=== PATIENT | male | born 1995 | race Caucasian/White ===

== ENCOUNTER 2017-11-14 19:36 | Inpatient (IN) | payer BC ==
[~2017-11-14] VITALS: Ht 182.9 cm; Wt 77.8 kg
[2017-11-14] MEDS ORDERED: SODIUM CHLORIDE 0.9% 500ML 500 ML IV STA (20:14)
[2017-11-14] MEDS ORDERED: PANTOprazole INJ 80 MG in DEXTROSE 5% 100ML 100 ML IV SCH (20:30)
[2017-11-14 20:52] LABS: HEMOGLOBIN 4.8 g/dL (14.0-18.0); MEAN CELL VOLUME 91.5 fL (80-100); MEAN CORPUSCULAR HEMOGLOBIN 31.4 pg (25-34); MEAN CORPUSCULAR HGB CONC 34.3 g/dl (32-36); MEAN PLATELET VOLUME 9.2 fL (7.4-10.4); PLATELET COUNT 178 K/uL (130-400); RED CELL DISTRIBUTION WIDTH CV 15.7 % (11.5-14.5); RED CELL DISTRIBUTION WIDTH SD 47.9 fL (36.4-46.3); WHITE BLOOD COUNT 8.02 K/uL (4.8-10.8)
[2017-11-14 20:53] LABS: INR 1.1 (0.9-1.1); PTT PATIENT 21.5 SECONDS (21.0-31.0)
[2017-11-14 20:54] LABS: ALBUMIN 2.8 gm/dl (3.4-5.0); ALT/SGPT 18 U/L (12-78); AST/SGOT 11 U/L (15-37); BLOOD UREA NITROGEN 22 mg/dl (7-18); CALCIUM 7.7 mg/dl (8.5-10.1); CARBON DIOXIDE 31 mmol/L (21-32); CREATININE 0.71 mg/dl (0.60-1.40); GLUCOSE 94 mg/dl (70-99); LIPASE 202 U/L (73-393); POTASSIUM 3.5 mmol/L (3.5-5.1); SODIUM 134 mmol/L (136-145)
--- NOTE | 2017-11-14 20:55 | EMERGENCY ROOM VISIT NOTE ---
History First contact with patient: 20:03 Chief Complaint: ABNORMAL LABS Stated Complaint: LOW HEMOGLOBIN History of Present Illness The patient is a 22 year old male who presents to the Emergency Room with complaints of syncope. He states he lost consciousness in his shower earlier this morning, but did not hit his head. He went to the urgent care center following this and was told to come to the ED due to a low hemoglobin level. He also reports he has been fatigued, dizzy and short of breath for the past 3 days. He also reports rhinorrhea, feeling congested and feeling his heartbeat in his ears. He states he has noticed dark stools for the past few days, and had not had this in the past. He denies passing bright red blood, denies the use of blood thinners, NSAIDs, or aspirin. He reports he does not have a history of ulcers, but does drink at least 2 cups of coffee each day. He states he has had stomach problems for the past 3 years, and has had a bowel movement approximately once a week. He also reports a 2 week history of burning epigastric pain, that comes and goes, and is unrelated to eating. He states the pain has been so bad at times he has doubled over. He denies mucosal bleeding, hematemesis, hematuria and hemoptysis. He denies alcohol use and recreational drug use. Review of Systems See HPI for pertinent positives & negatives. A total of 10 systems reviewed and were otherwise negative. Past Medical/Surgical History Medical Problems: (1) Hemorrhoid Social History Smoking Status: Current Every Day Smoker Alcohol Use: none Drug Use: none Marital Status: Occupation Status: employed No alcohol consumption, no recreational drug use. Current/Historical Medications No Active Prescriptions or Reported Meds Physical Exam Vital Signs Date Time Temp Pulse Resp B/P (MAP) Pulse Ox O2 Delivery O2 Flow Rate FiO2 11/14/17 21:08 105 11/14/17 20:44 110 16 113/57 97 Room Air 11/14/17 19:42 37.2 113 20 101/59 98 Room Air Physical Exam General: Patient is very pale and ill appearing. HEENT: Head - normocephalic and atraumatic. Mouth - moist buccal mucosa. Oropharynx is nonerythematous and there is no tonsillar exudate or edema noted. Heart: Tachycardic. Regular rate and rhythm. There is a normal S1 and S2 with no murmurs, clicks, or gallops appreciated. Lungs: Clear to auscultation bilaterally with no wheezes, rales, or rhonchi. Abdomen: Soft, nontender, nondistended, with good bowel sounds. There are no palpable pulsatile masses or hepatosplenomegaly. There is no guarding, rigidity , or rebound noted. Extremities: No evidence of cyanosis, clubbing, or edema. There are easily palpable peripheral pulses. Neuro:The patient is awake and alert, oriented to day, time, and place. Medical Decision & Procedures ER Provider Diagnostic Interpretation: CT SCAN OF THE ABDOMEN AND PELVIS WITHOUT IV CONTRAST CLINICAL HISTORY: Anemia. COMPARISON STUDY: Abdominal CT dated 09/08/2010. TECHNIQUE: CT scan of the abdomen and pelvis is performed from the lung bases to the proximal femora. Images are reviewed in the axial, sagittal, and coronal planes. IV contrast was not administered for this examination as per the front clinician. Note that the examination was performed in suboptimal fashion without oral and IV contrast. A dose lowering technique was utilized adhering to the principles of ALARA. The examination is modestly degraded by motion artifact. CT DOSE: 1102.79 mGy.cm FINDINGS: Lung bases: The heart is normal in size and without pericardial effusion. There is diminished attenuation of the cardiac blood pool as compared to the myocardium suggesting anemia. The lung bases are clear. Liver: The unenhanced liver is normal in size, contour, and attenuation. There is no intrahepatic biliary ductal dilatation. Gallbladder: Unremarkable. Spleen: Normal in size and attenuation. Pancreas: The unenhanced pancreas is grossly unremarkable. Adrenal glands: Unremarkable. Kidneys: The unenhanced kidneys are normal in size and without hydronephrosis. There are no renal calculi identified. There is no evidence of contour deforming renal mass lesion. Abdominal vasculature: The abdominal aorta is normal in course and caliber. Bowel: There is moderate colonic fecal retention. No bowel obstruction is seen. The appendix is not identified and reported surgically absent. Peritoneum: There is no intraperitoneal free air or abdominal ascites. No retroperitoneal hemorrhage is identified. Lymphadenopathy: None. Pelvic viscera: The bladder, prostate, and seminal vesicles are normal as visualized. Skeletal structures: No lytic or blastic lesions are seen. IMPRESSION: 1. Suboptimal examination without oral and IV contrast. 2. There are no acute infectious or inflammatory findings in the abdomen or pelvis. CT SCAN OF THE BRAIN WITHOUT IV CONTRAST CLINICAL HISTORY: Anemia. COMPARISON STUDY: CT of the brain dated 02/20/2011. TECHNIQUE: Unenhanced axial CT scan of the brain is performed from the vertex to the skull base. A dose lowering technique was utilized adhering to the principles of ALARA. FINDINGS: Brain parenchyma: The brain parenchyma is normal in appearance. There is no hemorrhage, mass effect, or evidence of acute territorial ischemia by CT criteria. Harris-white matter is preserved. No extra-axial fluid collection is seen. Ventricles, sulci, cisterns: Normal in configuration. Intracranial vasculature: The visualized intracranial vasculature at the skull base is normal in appearance. Calvarium: Unremarkable. Sinuses and mastoids: The visualized paranasal sinuses are clear. The mastoid air cells are well pneumatized. Orbits: The bony orbits are grossly intact. IMPRESSION: No acute intracranial abnormality. Laboratory Results 11/14/17 20:26 Red Blood Count 1.53, Mean Corpuscular Volume 91.5, Mean Corpuscular Hemoglobin 31.4, Mean Corpuscular Hemoglobin Concent 34.3, Mean Platelet Volume 9.2, Neutrophils (%) (Auto) 63.9, Lymphocytes (%) (Auto) 27.3, Monocytes (%) (Auto) 7.7, Eosinophils (%) (Auto) 0.5, Basophils (%) (Auto) 0.4, Neutrophils # (Auto) 5.12, Lymphocytes # (Auto) 2.19, Monocytes # (Auto) 0.62, Eosinophils # (Auto) 0.04, Basophils # (Auto) 0.03 11/14/17 20:26 Test 11/14/17 20:20 11/14/17 20:26 Urine Color YELLOW Urine Appearance CLEAR (CLEAR) Urine pH 5.0 (4.5-7.5) Urine Specific [place] 1.016 (1.000-1.030) Urine Protein NEG (NEG) Urine Glucose (UA) NEG (NEG) Urine Ketones NEG (NEG) Urine Occult Blood NEG (NEG) Urine Nitrite NEG (NEG) Urine Bilirubin NEG (NEG) Urine Urobilinogen NEG (NEG) Urine Leukocyte Esterase NEG (NEG) White Blood Count 8.02 K/uL (4.8-10.8) Red Blood Count 1.53 M/uL (4.7-6.1) Hemoglobin 4.8 g/dL (14.0-18.0) Hematocrit 14.0 % (42-52) Mean Corpuscular Volume 91.5 fL (80-100) Mean Corpuscular Hemoglobin 31.4 pg (25-34) Mean Corpuscular Hemoglobin Concent 34.3 g/dl (32-36) Platelet Count 178 K/uL (130-400) Mean Platelet Volume 9.2 fL (7.4-10.4) Neutrophils (%) (Auto) 63.9 % Lymphocytes (%) (Auto) 27.3 % Monocytes (%) (Auto) 7.7 % Eosinophils (%) (Auto) 0.5 % Basophils (%) (Auto) 0.4 % Neutrophils # (Auto) 5.12 K/uL (1.4-6.5) Lymphocytes # (Auto) 2.19 K/uL (1.2-3.4) Monocytes # (Auto) 0.62 K/uL (0.11-0.59) Eosinophils # (Auto) 0.04 K/uL (0-0.5) Basophils # (Auto) 0.03 K/uL (0-0.2) RDW Standard Deviation 47.9 fL (36.4-46.3) RDW Coefficient of Variation 15.7 % (11.5-14.5) Immature Granulocyte % (Auto) 0.2 % Immature Granulocyte # (Auto) 0.02 K/uL (0.00-0.02) Anisocytosis PRESENT Prothrombin Time 11.3 SECONDS (9.0-12.0) Prothromb Time International Ratio 1.1 (0.9-1.1) Activated Partial Thromboplast Time 21.5 SECONDS (21.0-31.0) Partial Thromboplastin Ratio 0.8 Anion Gap 2.0 mmol/L (3-11) Est Creatinine Clear Calc Drug Dose 170.2 ml/min Estimated GFR () > 150.0 Estimated GFR (Non- 131.3 BUN/Creatinine Ratio 31.0 (10-20) Calcium Level 7.7 mg/dl (8.5-10.1) Magnesium Level 1.9 mg/dl (1.8-2.4) Total Bilirubin 0.3 mg/dl (0.2-1) Direct Bilirubin < 0.1 mg/dl (0-0.2) Aspartate Amino Transf (AST/SGOT) 11 U/L (15-37) Alanine Aminotransferase (ALT/SGPT) 18 U/L (12-78) Alkaline Phosphatase 30 U/L (45-117) Troponin I < 0.015 ng/ml (0-0.045) Total Protein 5.1 gm/dl (6.4-8.2) Albumin 2.8 gm/dl (3.4-5.0) Lipase 202 U/L (73-393) Thyroid Stimulating Hormone (TSH) 1.260 uIu/ml (0.300-4.500) Medications Administered Medications (Trade) Dose Ordered Sig/Pat Route Start Time Stop Time Status Last Admin Dose Admin Sodium Chloride 500 ml @ 999 mls/hr Q31M STAT IV 11/14/17 20:14 11/14/17 20:44 DC 11/14/17 20:45 999 MLS/HR Pantoprazole Sodium 80 mg/ Dextrose 120 ml @ 400 mls/hr NOW IV 11/14/17 20:30 12/14/17 20:29 11/14/17 21:17 400 MLS/HR ECG Indication: syncope Rate (beats per minute): 103 Rhythm: normal sinus, other (Short [place] interval) ED Course 20:03: The patient was evaluated in room C12. A complete history and physical exam was performed. 20:10: The case was discussed with Dr. Herring. 20:11: The patient was seen with Dr. Herring. Stool guaiac positive. 20:14: 2 units PRBCs, 500mg IV saline bolus and 80mg IV pantoprazole were ordered 20:28: Dr. Herring discussed the case with Dr. Palmer, [facility] Hospitalist. The patient will be evaluated for admission. 20:40: The patient was reevaluated. He is hemodynamically stable. 21:03: The patient was sent down for CT scan of his abdomen and brain. 21:20: The patient was reassessed. He remains hemodynamically stable. Dr. Herring discussed the CT scan findings with him. 21:45: The patient was reevaluated. He is resting comfortably and remains stable. Medical Decision Etiologies such as peptic ulcer disease, AVM, coagulopathy, colitis, inflammatory bowel disease, malignancy, gastritis, hemorrhoids, as well as others were entertained. Mr. Viard presented to [facility] following a syncopal episode that occurred this morning. He was sent over from the urgent care center due to a hemoglobin level of 5. He was hemodynamically stable, and given 500 mls of IV fluid and was type and cross-matched for 2 units of packed red blood cells. His CT abdomen and brain were unremarkable. He warrants admission for further work up of his severe anemia. Impression Primary Impression: Severe anemia Additional Impression: Syncope Departure Information Dispostion Being Evaluated By Hospitalist Prescriptions No Active Prescriptions or Reported Meds Referrals No Doctor, Assigned (PCP) Patient Instructions My [facility] Resident Tracking Resident Involvement: Resident Care Provided Care Provided: Adult ED Problem Qualifiers Additional Impression: Syncope Syncope type: unspecified Qualified Codes: R55 - Syncope and collapse
[2017-11-14 20:57] LABS: BASO % 0.4 %; BASO ABS # 0.03 K/uL (0-0.2); EOS % 0.5 %; EOS ABS # 0.04 K/uL (0-0.5); IG# 0.02 K/uL (0.00-0.02); LYMPH % 27.3 %; LYMPH ABS # 2.19 K/uL (1.2-3.4); MONO % 7.7 %; MONO ABS # 0.62 K/uL (0.11-0.59); NEUT % 63.9 %; NEUT ABS # 5.12 K/uL (1.4-6.5)
[2017-11-14 21:05] LABS: ALKALINE PHOSPHATASE 30 U/L (45-117); TOTAL PROTEIN 5.1 gm/dl (6.4-8.2)
--- NOTE | 2017-11-14 21:08 | DIAGNOSTIC IMAGING REPORT ---
CT SCAN OF THE BRAIN WITHOUT IV CONTRAST CLINICAL HISTORY: Anemia. COMPARISON STUDY: CT of the brain dated 02/20/2011. TECHNIQUE: Unenhanced axial CT scan of the brain is performed from the vertex to the skull base. A dose lowering technique was utilized adhering to the principles of ALARA. FINDINGS: Brain parenchyma: The brain parenchyma is normal in appearance. There is no hemorrhage, mass effect, or evidence of acute territorial ischemia by CT criteria. Harris-white matter is preserved. No extra-axial fluid collection is seen. Ventricles, sulci, cisterns: Normal in configuration. Intracranial vasculature: The visualized intracranial vasculature at the skull base is normal in appearance. Calvarium: Unremarkable. Sinuses and mastoids: The visualized paranasal sinuses are clear. The mastoid air cells are well pneumatized. Orbits: The bony orbits are grossly intact. IMPRESSION: No acute intracranial abnormality. Electronically signed by: Jay Jay Goldberg M.D. 11/14/2017 9:06 PM Dictated Date/Time: 11/14/2017 9:05 PM
--- NOTE | 2017-11-14 21:13 | DIAGNOSTIC IMAGING REPORT ---
CT SCAN OF THE ABDOMEN AND PELVIS WITHOUT IV CONTRAST CLINICAL HISTORY: Anemia. COMPARISON STUDY: Abdominal CT dated 09/08/2010. TECHNIQUE: CT scan of the abdomen and pelvis is performed from the lung bases to the proximal femora. Images are reviewed in the axial, sagittal, and coronal planes. IV contrast was not administered for this examination as per the front clinician. Note that the examination was performed in suboptimal fashion without oral and IV contrast. A dose lowering technique was utilized adhering to the principles of ALARA. The examination is modestly degraded by motion artifact. CT DOSE: 1102.79 mGy.cm FINDINGS: Lung bases: The heart is normal in size and without pericardial effusion. There is diminished attenuation of the cardiac blood pool as compared to the myocardium suggesting anemia. The lung bases are clear. Liver: The unenhanced liver is normal in size, contour, and attenuation. There is no intrahepatic biliary ductal dilatation. Gallbladder: Unremarkable. Spleen: Normal in size and attenuation. Pancreas: The unenhanced pancreas is grossly unremarkable. Adrenal glands: Unremarkable. Kidneys: The unenhanced kidneys are normal in size and without hydronephrosis. There are no renal calculi identified. There is no evidence of contour deforming renal mass lesion. Abdominal vasculature: The abdominal aorta is normal in course and caliber. Bowel: There is moderate colonic fecal retention. No bowel obstruction is seen. The appendix is not identified and reported surgically absent. Peritoneum: There is no intraperitoneal free air or abdominal ascites. No retroperitoneal hemorrhage is identified. Lymphadenopathy: None. Pelvic viscera: The bladder, prostate, and seminal vesicles are normal as visualized. Skeletal structures: No lytic or blastic lesions are seen. IMPRESSION: 1. Suboptimal examination without oral and IV contrast. 2. There are no acute infectious or inflammatory findings in the abdomen or pelvis. Electronically signed by: Jay Jay Goldberg M.D. 11/14/2017 9:11 PM Dictated Date/Time: 11/14/2017 9:08 PM
[2017-11-14] MEDS ORDERED: ACETAMINOPHEN 325 MG TAB PO STA (21:37)
[2017-11-14] MEDS ORDERED: ACETAMINOPHEN 325 MG TAB PO PRN (21:45)
[2017-11-14] MEDS ORDERED: TRAMADOL HCL 50 MG TAB PO PRN (22:30)
[2017-11-14] MEDS ORDERED: MoRPHine SULFATE 4 MG/ML 1 ML CARP\\VIAL IV PRN (22:30)
[2017-11-14] MEDS ORDERED: PROCHLORPERAZINE INJ 5 MG in SYRINGE 4 ML IV PRN (22:30)
[2017-11-14 23:00] VITALS: BP 112/47; PULSE 105; TEMP 37.1; O2SAT 96
[2017-11-14 23:11] LABS: RETIC COUNT % 10.7 % (0.5-2.0)
[2017-11-14 23:15] VITALS: BP 111/52; PULSE 111; TEMP 37.1; O2SAT 97
[2017-11-14] MEDS: PANTOprazole INJ 40 MG in DEXTROSE 5% 100ML 100 ML IV SCH (23:37)
[2017-11-14 23:40] VITALS: BP 104/60; PULSE 101; PULSE 97; TEMP 37; TEMP 37.2; O2SAT 97; Ht 182.9 cm; Wt 77.8 kg
--- NOTE | 2017-11-14 23:45 | EMERGENCY ROOM VISIT NOTE ---
History Report prepared by Ashly: Joss Palomino Under the Supervision of: Dr. Kwame Herring M.D. First contact with patient: 19:54 Chief Complaint: ABNORMAL LABS Stated Complaint: LOW HEMOGLOBIN History of Present Illness The patient is a 22 year old male who presents to the Emergency Room with complaints of an episode of low hemoglobin occurring today. The patient states that he lost consciousness while he was in the shower around 1100 today. He notes that he collapsed, and did not think he hit his head. He reports that he went to urgent care following his syncopal episode, where he was told to come to the emergency department for his low hemoglobin. The patient complains of weakness, a large amount of pressure in his head, SOB, and dark stools. He states that he has been experiencing dark stool for the last 2 days. He notes that he started to feel sick 3 days ago. He denies any CP and abdominal pain. He reports that he does not take any blood thinners and prescription medication , but drinks a large amount of coffee. The patient states that he has a history of stomach issues and hemorrhoids. There is a family history of Crohn's disease. Source of History: patient Onset: today Position: other (global) Symptom Intensity: hemoglobin level: 5 Quality: other (low hemoglobin level) Timing: other (an episode) Associated Symptoms: + LOC, + SOB, + weakness, No chest pain, No abdominal pain Note: He complains of pressure in his head and dark stools. He denies hitting his head. Review of Systems See HPI for pertinent positives & negatives. A total of 10 systems reviewed and were otherwise negative. Past Medical & Surgical Medical Problems: (1) GI bleed (2) Hemorrhoid Family History FHx: Crohn's disease Social History Smoking Status: Current Every Day Smoker Alcohol Use: none Marital Status: Housing Status: lives with family Current/Historical Medications No Active Prescriptions or Reported Meds Allergies Coded Allergies: No Known Allergies (Unverified , 11/14/17) Physical Exam Vital Signs Date Time Temp Pulse Resp B/P (MAP) Pulse Ox O2 Delivery O2 Flow Rate FiO2 11/14/17 21:56 108 16 119/51 Room Air 11/14/17 21:08 105 11/14/17 20:44 110 16 113/57 97 Room Air 11/14/17 19:42 37.2 113 20 101/59 98 Room Air Physical Exam Constitutional: Vital signs reviewed. Initially slightly hypotensive. Eyes: Pupils are equal round reactive to light. Conjunctiva are noninjected. ENT: Pharynx is clear without erythema or exudate. Mucous membranes are moist. Neck supple without meningeal signs. Respiratory: Clear to auscultation bilaterally. Breath sounds are equal bilaterally. Cardiovascular: Tachycardic. Heart rate 110. No rubs or gallops. GI: Soft, nondistended and nontender. Bowel sounds are present. Musculoskeletal: No peripheral edema. No lower extremity tenderness. Integumentary: Very pale. Neurological: The patient is awake and alert. No focal deficits. Psychiatric: Normal affect. Medical Decision & Procedures ER Provider Diagnostic Interpretation: Radiology results as stated below per my review and the radiologist's interpretation: CT SCAN OF THE BRAIN WITHOUT IV CONTRAST CLINICAL HISTORY: Anemia. COMPARISON STUDY: CT of the brain dated 02/20/2011. TECHNIQUE: Unenhanced axial CT scan of the brain is performed from the vertex to the skull base. A dose lowering technique was utilized adhering to the principles of ALARA. FINDINGS: Brain parenchyma: The brain parenchyma is normal in appearance. There is no hemorrhage, mass effect, or evidence of acute territorial ischemia by CT criteria. Harris-white matter is preserved. No extra-axial fluid collection is seen. Ventricles, sulci, cisterns: Normal in configuration. Intracranial vasculature: The visualized intracranial vasculature at the skull base is normal in appearance. Calvarium: Unremarkable. Sinuses and mastoids: The visualized paranasal sinuses are clear. The mastoid air cells are well pneumatized. Orbits: The bony orbits are grossly intact. IMPRESSION: No acute intracranial abnormality. Electronically signed by: Jay Jay Goldberg M.D. 11/14/2017 9:[address] SCAN OF THE ABDOMEN AND PELVIS WITHOUT IV CONTRAST CLINICAL HISTORY: Anemia. COMPARISON STUDY: Abdominal CT dated 09/08/2010. TECHNIQUE: CT scan of the abdomen and pelvis is performed from the lung bases to the proximal femora. Images are reviewed in the axial, sagittal, and coronal planes. IV contrast was not administered for this examination as per the front clinician. Note that the examination was performed in suboptimal fashion without oral and IV contrast. A dose lowering technique was utilized adhering to the principles of ALARA. The examination is modestly degraded by motion artifact. CT DOSE: 1102.79 mGy.cm FINDINGS: Lung bases: The heart is normal in size and without pericardial effusion. There is diminished attenuation of the cardiac blood pool as compared to the myocardium suggesting anemia. The lung bases are clear. Liver: The unenhanced liver is normal in size, contour, and attenuation. There is no intrahepatic biliary ductal dilatation. Gallbladder: Unremarkable. Spleen: Normal in size and attenuation. Pancreas: The unenhanced pancreas is grossly unremarkable. Adrenal glands: Unremarkable. Kidneys: The unenhanced kidneys are normal in size and without hydronephrosis. There are no renal calculi identified. There is no evidence of contour deforming renal mass lesion. Abdominal vasculature: The abdominal aorta is normal in course and caliber. Bowel: There is moderate colonic fecal retention. No bowel obstruction is seen. The appendix is not identified and reported surgically absent. Peritoneum: There is no intraperitoneal free air or abdominal ascites. No retroperitoneal hemorrhage is identified. Lymphadenopathy: None. Pelvic viscera: The bladder, prostate, and seminal vesicles are normal as visualized. Skeletal structures: No lytic or blastic lesions are seen. IMPRESSION: 1. Suboptimal examination without oral and IV contrast. 2. There are no acute infectious or inflammatory findings in the abdomen or pelvis. Electronically signed by: Jay Jay Goldberg M.D. 11/14/2017 9:11 PM Laboratory Results 11/14/17 20:26 Red Blood Count 1.53, Mean Corpuscular Volume 91.5, Mean Corpuscular Hemoglobin 31.4, Mean Corpuscular Hemoglobin Concent 34.3, Mean Platelet Volume 9.2, Neutrophils (%) (Auto) 63.9, Lymphocytes (%) (Auto) 27.3, Monocytes (%) (Auto) 7.7, Eosinophils (%) (Auto) 0.5, Basophils (%) (Auto) 0.4, Neutrophils # (Auto) 5.12, Lymphocytes # (Auto) 2.19, Monocytes # (Auto) 0.62, Eosinophils # (Auto) 0.04, Basophils # (Auto) 0.03 11/14/17 20:26 Test 11/14/17 20:20 11/14/17 20:26 Urine Color YELLOW Urine Appearance CLEAR (CLEAR) Urine pH 5.0 (4.5-7.5) Urine Specific [place] 1.016 (1.000-1.030) Urine Protein NEG (NEG) Urine Glucose (UA) NEG (NEG) Urine Ketones NEG (NEG) Urine Occult Blood NEG (NEG) Urine Nitrite NEG (NEG) Urine Bilirubin NEG (NEG) Urine Urobilinogen NEG (NEG) Urine Leukocyte Esterase NEG (NEG) Urine Opiates Screen NEG (NEG) Urine Methadone, Qualitative NEG (NEG) Urine Barbiturates NEG (NEG) Urine Phencyclidine (PCP) Level NEG (NEG) Ur Amphetamine/Methamphetamine POS (NEG) MDMA (Ecstasy) Screen NEG (NEG) Urine Benzodiazepines Screen NEG (NEG) Urine Cocaine Metabolite NEG (NEG) Urine Marijuana (THC) NEG (NEG) White Blood Count 8.02 K/uL (4.8-10.8) Red Blood Count 1.53 M/uL (4.7-6.1) Hemoglobin 4.8 g/dL (14.0-18.0) Hematocrit 14.0 % (42-52) Mean Corpuscular Volume 91.5 fL (80-100) Mean Corpuscular Hemoglobin 31.4 pg (25-34) Mean Corpuscular Hemoglobin Concent 34.3 g/dl (32-36) Platelet Count 178 K/uL (130-400) Mean Platelet Volume 9.2 fL (7.4-10.4) Neutrophils (%) (Auto) 63.9 % Lymphocytes (%) (Auto) 27.3 % Monocytes (%) (Auto) 7.7 % Eosinophils (%) (Auto) 0.5 % Basophils (%) (Auto) 0.4 % Neutrophils # (Auto) 5.12 K/uL (1.4-6.5) Lymphocytes # (Auto) 2.19 K/uL (1.2-3.4) Monocytes # (Auto) 0.62 K/uL (0.11-0.59) Eosinophils # (Auto) 0.04 K/uL (0-0.5) Basophils # (Auto) 0.03 K/uL (0-0.2) RDW Standard Deviation 47.9 fL (36.4-46.3) RDW Coefficient of Variation 15.7 % (11.5-14.5) Immature Granulocyte % (Auto) 0.2 % Immature Granulocyte # (Auto) 0.02 K/uL (0.00-0.02) Anisocytosis PRESENT Prothrombin Time 11.3 SECONDS (9.0-12.0) Prothromb Time International Ratio 1.1 (0.9-1.1) Activated Partial Thromboplast Time 21.5 SECONDS (21.0-31.0) Partial Thromboplastin Ratio 0.8 Anion Gap 2.0 mmol/L (3-11) Est Creatinine Clear Calc Drug Dose 170.2 ml/min Estimated GFR () > 150.0 Estimated GFR (Non- 131.3 BUN/Creatinine Ratio 31.0 (10-20) Calcium Level 7.7 mg/dl (8.5-10.1) Magnesium Level 1.9 mg/dl (1.8-2.4) Total Bilirubin 0.3 mg/dl (0.2-1) Direct Bilirubin < 0.1 mg/dl (0-0.2) Aspartate Amino Transf (AST/SGOT) 11 U/L (15-37) Alanine Aminotransferase (ALT/SGPT) 18 U/L (12-78) Alkaline Phosphatase 30 U/L (45-117) Troponin I < 0.015 ng/ml (0-0.045) Total Protein 5.1 gm/dl (6.4-8.2) Albumin 2.8 gm/dl (3.4-5.0) Lipase 202 U/L (73-393) Thyroid Stimulating Hormone (TSH) 1.260 uIu/ml (0.300-4.500) Laboratory results as reviewed by me. Medications Administered Medications (Trade) Dose Ordered Sig/Pat Route Start Time Stop Time Status Last Admin Dose Admin Sodium Chloride 500 ml @ 999 mls/hr Q31M STAT IV 11/14/17 20:14 11/14/17 20:44 DC 11/14/17 20:45 999 MLS/HR Pantoprazole Sodium 80 mg/ Dextrose 120 ml @ 400 mls/hr NOW IV 11/14/17 20:30 12/14/17 20:29 11/14/17 21:17 400 MLS/HR Acetaminophen (Tylenol Tab) 650 mg NOW STAT PO 11/14/17 21:37 11/14/17 21:38 DC 11/14/17 21:56 650 MG ECG Indication: syncope Rate (beats per minute): 103 Rhythm: sinus tachycardia Findings: no ectopy, other (short MO interval, no delta waves) ED Course 2007: The patient was evaluated in room C12. A complete history and physical exam was performed. 2013: Sodium Chloride 500 ml @ 999 mls/hr IV 2015: The records from the urgent care facility showed that the patient had a hemoglobin of 5. It also showed that the patient had a normal chest X-RAY. 2020: Upon reevaluation, the patient appears stable. I discussed the treatment plan with him and he agrees. I discussed the patient's case with Dr. Palmer - [facility]. The patient will be evaluated for further management and care. 2028: I discussed with the charge nurse about the possibility of transfusion from the family. He stated that it would be impossible because the blood would need to be transported to [place] to be checked. This would not allow the patient to be transfused today. I informed the patient and his family. The patient signed consent for transfusion here. 2101: I reevaluated the patient. He was in ct scan. I discussed the rationale for an abdominal CT with the patient's family. 2120: I reevaluated and updated the patient. His blood pressure is stable and his heart rate is at 107. I discussed the CT scan results and abnormal EKG with the patient and his family. 3: The blood has been sent up and Dr. Palmer is evaluating. The patient is still tachycardic but normotensive. 2303: The patient is now getting his transfusion. Medical Decision This is a 22-year-old male who presents with a syncopal episode and low hemoglobin. Differential diagnosis includes GI bleed, peptic ulcer disease, gastritis, gastric perforation, inflammatory bowel disease. I did perform a limited focused review of portions of the patient's old chart on the electronic medical record. The patient has had no prior visits to this hospital. I did evaluate the patient as noted above. The patient is presenting with a syncopal episode today. He is very pale and evaluation. His hemoglobin was reported at 5 by an urgent care center today. He does have guaiac positive melanotic stools here. IV access was established. The patient was placed on a continuous pvc monitor. He is slightly hypertensive initially. He was given a normal saline bolus with 500 mL IV. I did order and personally review the patient's 12-lead EKG as described above. He does have a shortened MO interval. I did order and review the patient's blood work as noted in the electronic medical record. His hemoglobin is less than 5. I did order a CT of the head, abdomen and pelvis. I did review the images myself as well as the radiology report as described above. No acute intracranial hemorrhage as noted on CT scanning. His abdomen and pelvis was unremarkable without signs of perforation or free air. I did treat patient with Protonix IV. I did order 2 units of packed red blood cells to be transfused after obtaining written and verbal consent. I did reassess the patient multiple times. He did remain hemodynamically stable although slightly tachycardic. I did discuss case with the hospitalist and pillowcase turner. The patient was transfused in the emergency department. Head Trauma GCS Score: 15 Medication Reconcilliation Current Medication List: was personally reviewed by me Blood Pressure Screening Patient's blood pressure: Low blood pressure Blood pressure disposition: Referred to PCP Impression Primary Impression: Severe anemia Additional Impressions: Syncope Gastrointestinal hemorrhage with melena Abnormal EKG Critical Care I have personally spent 32 minutes of critical care time in the direct management of this patient. This includes bedside care, interpretation of diagnostic studies and testing, discussion with consultants and patient, and other required patient management activities. This time is in excess of all separately billable procedures. Scribe Attestation The scribe's documentation has been prepared under my direct and personally reviewed by me in its entirety. I confirm that the note above accurately reflects all work, treatment, procedures, and medical decision making performed by me. Departure Information Dispostion Being Evaluated By Hospitalist Prescriptions No Active Prescriptions or Reported Meds Referrals No Doctor, Assigned (PCP) Patient Instructions My [facility] Problem Qualifiers Additional Impressions: Syncope Syncope type: unspecified Qualified Codes: R55 - Syncope and collapse
[2017-11-15] VITALS (37 sets, daily range): BP systolic 61–129; BP diastolic 58–79; PULSE 73–109; TEMP 36.7–37.1; O2SAT 89–100
[2017-11-15] MEDS: NSS + 20MEQ KCL 1000ML 1,000 ML IV SCH ×2 (00:39→19:31)
--- NOTE | 2017-11-15 04:03 | HISTORY & PHYSICAL EXAMINATION ---
DATE OF ADMISSION: 11/14/2017 The patient has no primary care doctor. CHIEF COMPLAINT: Syncope. HISTORY OF PRESENT ILLNESS: History obtained from the patient's family and records. Limited history from the patient secondary to a lethargic state. Medical history significant for ongoing e-cigarette use. Patient has had heartburn symptoms for years as per patient's partner. Symptoms worse the last 2 months as per patient's family. Patient would be hunched forward in pain. No unusual weight loss. Occasional hemorrhoidal bleed as per family. As per patient's partner, the patient would take OTC Excedrin and ibuprofen for headaches, back pain, abdominal pain symptoms. Stools noted to be dark the last few days. No hematemesis. Patient denies unusual abdominal pain as per family. At home today, patient had an unwitnessed syncopal event in the shower. Px called his mother. Patient seen at Urgent care center. Hemoglobin at urgent care center noted to be 4. Patient sent to the Emergency Room. Protonix bolus/drip started for a GI bleed. Patient noted to be lethargic at the ER. As per family, patient has not had enough sleep the last few days secondary to working a lot. MEDICAL HISTORY: No previous endoscopies in past. SURGERIES: Appendectomy. HOME MEDICATIONS: Include none. ALLERGIES: No known drug allergies. FAMILY HISTORY: Stomach ulcers as per family. PERSONAL AND SOCIAL HISTORY: E-cigarette use. No alcohol intake as per patient's partner. 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 REVIEW OF SYSTEMS: Could not be obtained. PHYSICAL EXAMINATION: VITAL SIGNS: Blood pressure was noted to be 101/59, pulse rate 113, RR 16, temperature 37.9, sats 97 on room air. GENERAL: Noted to be lethargic. No respiratory distress. SKIN: Pallor. Warm. HEENT Pale palpebral conjunctivae. No ptosis. Dry mucosa. NECK: Supple. No tenderness. CHEST: Decreased effort. No tenderness. HEART: Tachycardic, no murmur. ABDOMEN: Soft, no tenderness. No organomegaly. EXTREMITIES: No edema noted. No tenderness, no gross deformities. NE : Lethargic, miotic pupils, no facial symmetry LABORATORY DATA: Hemoglobin was noted to be 4.8, hematocrit 14, white cell count 8, platelets noted to be 178. Sodium noted to be 136, potassium 3.5, chloride 101, CO2 31, BUN 20, creatinine 0.7, glucose was noted to be 94. CT head, no acute pathology. CT abdomen and pelvis, suboptimal exam. No acute infectious or inflammatory findings. ASSESSMENT: 1. Syncopal event possible orthostasis 2 to upper gastrointestinal bleed probable history of GERD w heartburn symptoms rule out peptic ulcer disease. Intermittent NSAID intake 2. Symptomatic anemia secondary above PLAN: PCU Check orthostatic vitals IVF transfuse packed RBC to maintain hemoglobin greater 7 and/or for symptomatic anemia. IV PPI for now. GI consult. RE UGIB Anemia workup DVT prophylaxis, SCDs RE GI bleed. Full code. Patient's partner requesting updates from providers. Ms. Izaiah Rios at [phone]. MTDD
[2017-11-15] MEDS: PANTOprazole INJ 40 MG in DEXTROSE 5% 100ML 100 ML IV SCH ×4 (05:31→21:35)
[2017-11-15] MEDS ORDERED: INFLUENZA VIRUS QUAD VACCINE 0.5 ML SYR IM. ONE (08:15)
[2017-11-15] MEDS ORDERED: INFLUENZA ADMINISTRATION CHARGE ONE (08:15)
--- NOTE | 2017-11-15 08:57 | Gastrointestinal Consultation ---
Gastrointestinal Consultation Date of Consultation: Nov 15, 2017 Attending Physician: Dr. Correia Consulting Physician: Dr. Lopes Reason for Consultation: Anemia, History of Present Illness Patient is a 22 year old male patient w/o a primary care provider, who has a hx of appendicitis but otherwise unremarkable PMH who presented to the ED yesterday for fainting. GI is consulted for a GI bleed. The pt reports having intermittent stomach pain for the past 3 yrs and tends toward constipation. He takes Excedrin for headaches, about 1-2 pills/day. He has chronic upper abdomen pain, "like a hunger, but eating doesn't help." In the past month or so, this pain escalated and began to "burn." The pain is present all day long, every day but he is able to sleep at night. On Tuesday or Tuesday, (unsure which day), he vomited dark liquid "like coffee," emesis and passed one formed black stool. He has not had a BM or emesis since that time. He reports SOB and lightheadedness present for months and a few weeks ago, it became very hard to do his job due to these symptoms. He believes the feeling of fatigue and SOB came on very slowly. He is a very pleasant young man who is very fatigued, somewhat lethargic but does provide a thorough history. 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 He drinks about 1-2 beers a 1-2 times/month and denies any marijuana or drugs of abuse. He admits to drinking energy drinks and a 2 coffees every day. After fainting in the shower, he called a family member who took him to urgent care, where a Hb was done and he was sent to [facility] for anemia. On arrival, Hb 4.8 , Hct 14. BUN is 22. MCV was normal. CT of the head was normal and non contrast CT of the abd/pelvis was normal as well. He has been mildly tachycardic, to 100 and hypotensive to 90's/50's. He has received two units of blood, recheck Hb is pending. Of note, a family member is allergic to succinylcholine. Past Medical/Surgical History Medical Problems: (1) Abnormal EKG Status: Acute (2) Gastrointestinal hemorrhage with melena Status: Acute (3) Severe anemia Status: Acute (4) Syncope Status: Acute Past Medical History: Appendicitis Past Surgical History: Appendectomy Family History FHx: Crohn's disease Social History Smoking Status: Current Every Day Smoker Alcohol Use: none Drug Use: none Marital Status: Housing Status: lives with family Occupation Status: employed Allergies Coded Allergies: No Known Allergies (Unverified , 11/14/17) Current Medications Home Meds and Scripts Medications Dose Route/Sig Max Daily Dose Days Date Category No Active Prescriptions or Reported Medications Rx Review of Systems Constitutional: + fatigue, + problem reported (fainted), No fever, No chills, No sweats, No weight loss, No weakness Eyes: No eye pain, No redness ENT: No sore throat, No trouble swallowing, No pain on swallowing Respiratory: + shortness of breath, No cough, No wheezing, No dyspnea on exertion Cardiac: No chest pain, No edema, No palpitations Abdomen: + see HPI, No pain, No nausea, No vomiting Male : No dysuria Neuro: No memory loss, No weakness, No numbness/tingling, No vertigo, No balance problems Psych: No depression symptoms, No anxiety, No insomnia Heme: No abnormal bleeding/bruising, No night sweats Endo: + fatigue, No excessive thirst, No excessive urination Skin: No rash, No itch, No new/changing skin lesions, No jaundice Physical Exam Date Time Temp Pulse Resp B/P (MAP) Pulse Ox O2 Delivery O2 Flow Rate FiO2 11/15/17 08:04 36.9 98 18 102/61 (75) 96 11/15/17 06:53 89 18 99/62 89 11/15/17 06:16 88 16 61/ 100 11/15/17 06:00 37.0 90 16 107/61 98 11/15/17 05:45 37.0 88 16 97/58 100 11/15/17 05:11 37.1 95 16 108/64 100 1.0 11/15/17 04:21 37.0 89 16 100/64 100 1.0 11/15/17 04:00 97 Room Air 11/15/17 03:52 37.0 101 18 112/73 100 11/15/17 03:50 37.0 101 22 112/73 (86) 100 Nasal Cannula 2.0 109 96/58 (71) 107 100/68 (79) 11/15/17 03:21 37.1 90 26 106/66 100 1.0 11/15/17 03:06 37.0 91 18 101/66 100 11/15/17 02:52 37.0 91 16 102/66 100 11/15/17 02:32 37.0 87 16 100/67 100 1.0 11/15/17 02:31 37.0 87 16 100/67 100 11/15/17 01:00 98 16 106/64 100 1.0 11/15/17 00:32 99 14 104/64 97 11/15/17 00:17 97 16 105/64 98 11/15/17 00:01 97 Room Air 11/14/17 23:40 37.0 97 16 104/60 Room Air 11/14/17 23:40 37.2 101 16 104/60 97 11/14/17 23:15 97 11/14/17 23:15 37.1 111 16 111/52 11/14/17 23:00 37.1 105 16 112/47 96 11/14/17 21:56 108 16 119/51 Room Air 11/14/17 21:08 105 11/14/17 20:44 110 16 113/57 97 Room Air 11/14/17 19:42 37.2 113 20 101/59 98 Room Air General Appearance: no apparent distress Eyes: normal inspection, EOMI Neck: supple, no adenopathy, thyroid normal, no JVD Respiratory/Chest: chest non-tender, lungs clear, normal breath sounds, no accessory muscle use Cardiovascular: regular rate, rhythm, no JVD, no murmur Abdomen: normal bowel sounds, soft, no organomegaly, + tenderness (mild epigastric tenderness) Extremities: normal inspection, no pedal edema, normal capillary refill Neurologic/Psych: alert, normal mood/affect, oriented x 3 Skin: normal color, no jaundice, warm/dry, no rash Laboratory Results Last 24 Hours Test 11/14/17 20:20 11/14/17 20:26 11/14/17 22:46 11/15/17 04:44 Urine Color YELLOW Urine Appearance CLEAR Urine pH 5.0 Urine Specific [place] 1.016 Urine Protein NEG Urine Glucose (UA) NEG Urine Ketones NEG Urine Occult Blood NEG Urine Nitrite NEG Urine Bilirubin NEG Urine Urobilinogen NEG Urine Leukocyte Esterase NEG Urine Opiates Screen NEG Urine Methadone, Qualitative NEG Urine Barbiturates NEG Urine Phencyclidine (PCP) Level NEG Ur Amphetamine/Methamphetamine POS MDMA (Ecstasy) Screen NEG Urine Benzodiazepines Screen NEG Urine Cocaine Metabolite NEG Urine Marijuana (THC) NEG White Blood Count 8.02 K/uL Red Blood Count 1.53 M/uL Hemoglobin 4.8 g/dL Hematocrit 14.0 % Mean Corpuscular Volume 91.5 fL Mean Corpuscular Hemoglobin 31.4 pg Mean Corpuscular Hemoglobin Concent 34.3 g/dl Platelet Count 178 K/uL Mean Platelet Volume 9.2 fL Neutrophils (%) (Auto) 63.9 % Lymphocytes (%) (Auto) 27.3 % Monocytes (%) (Auto) 7.7 % Eosinophils (%) (Auto) 0.5 % Basophils (%) (Auto) 0.4 % Neutrophils # (Auto) 5.12 K/uL Lymphocytes # (Auto) 2.19 K/uL Monocytes # (Auto) 0.62 K/uL Eosinophils # (Auto) 0.04 K/uL Basophils # (Auto) 0.03 K/uL RDW Standard Deviation 47.9 fL RDW Coefficient of Variation 15.7 % Immature Granulocyte % (Auto) 0.2 % Immature Granulocyte # (Auto) 0.02 K/uL Anisocytosis PRESENT Prothrombin Time 11.3 SECONDS Prothromb Time International Ratio 1.1 Activated Partial Thromboplast Time 21.5 SECONDS Partial Thromboplastin Ratio 0.8 Sodium Level 134 mmol/L Potassium Level 3.5 mmol/L Chloride Level 101 mmol/L Carbon Dioxide Level 31 mmol/L Anion Gap 2.0 mmol/L Blood Urea Nitrogen 22 mg/dl Creatinine 0.71 mg/dl Est Creatinine Clear Calc Drug Dose 170.2 ml/min Estimated GFR () > 150.0 Estimated GFR (Non- 131.3 BUN/Creatinine Ratio 31.0 Random Glucose 94 mg/dl Calcium Level 7.7 mg/dl Magnesium Level 1.9 mg/dl Total Bilirubin 0.3 mg/dl Direct Bilirubin < 0.1 mg/dl Aspartate Amino Transf (AST/SGOT) 11 U/L Alanine Aminotransferase (ALT/SGPT) 18 U/L Alkaline Phosphatase 30 U/L Troponin I < 0.015 ng/ml Total Protein 5.1 gm/dl Albumin 2.8 gm/dl Lipase 202 U/L Thyroid Stimulating Hormone (TSH) 1.260 uIu/ml Absolute Reticulocyte Count 0.13 10^6/uL Percent Reticulocyte Count 10.7 % Iron Level 79 mcg/dl Total Iron Binding Capacity 226 mcg/dl Transferrin 173 mg/dl Transferrin % Saturation 33 % Ferritin 40.2 ng/ml Ammonia 46.0 umol/L Vitamin B12 Level 246 pg/mL Folate 9.16 ng/mL Ethyl Alcohol mg/dL < 3.0 mg/dl Impression Patient is a 22 year old male with progressive SOB over the past few months, who had a dark emesis and one dark formed stool 2 days ago, w/o active gross GI bleeding. He has epigastric burning and takes NSAIDs regularly. Gastric and duodenal ulcers should be ruled out and if EGD is normal, then Celiac Disease and other causes of anemia should be ruled out. Plan EGD today. Agree with Protonix drip. Further recommendations to follow the EGD. ATTESTATION: I have performed a history and physical examination of this patient and reviewed the electronic record. Specifically, on physical examination there is mild epigastric tenderness and no sign of active bleeding. I have discussed the case with MERLY Lew. The above note reflects my findings, conclusions , and recommendations. Ba Lopes MD
[2017-11-15 09:31] LABS: BASO % 0.3 %; BASO ABS # 0.02 K/uL (0-0.2); EOS % 0.6 %; EOS ABS # 0.04 K/uL (0-0.5); HEMATOCRIT 21.4 % (42-52); HEMOGLOBIN 7.4 g/dL (14.0-18.0); IG# 0.02 K/uL (0.00-0.02); LYMPH % 24.7 %; LYMPH ABS # 1.63 K/uL (1.2-3.4); MEAN CELL VOLUME 88.8 fL (80-100); MEAN CORPUSCULAR HEMOGLOBIN 30.7 pg (25-34); MEAN CORPUSCULAR HGB CONC 34.6 g/dl (32-36); MONO % 7.4 %; MONO ABS # 0.49 K/uL (0.11-0.59); NEUT % 66.7 %; NEUT ABS # 4.39 K/uL (1.4-6.5); PLATELET COUNT 142 K/uL (130-400); RED CELL DISTRIBUTION WIDTH CV 15.8 % (11.5-14.5); RED CELL DISTRIBUTION WIDTH SD 47.5 fL (36.4-46.3); WHITE BLOOD COUNT 6.59 K/uL (4.8-10.8)
--- NOTE | 2017-11-15 09:44 | Progress Note ---
Medicine Progress Note Date & Time of Visit: Nov 15, 2017 at 09:31. Subjective patient seen resting in bed, alert, oriented x 3 states he feels better compared to admission denies chest pain, dyspnea, palpitations, dizziness no abdominal pain, nausea/vomiting denies BMs today no other symptoms Objective Last 8 Hrs Date Time Temp Pulse Resp B/P (MAP) Pulse Ox O2 Delivery O2 Flow Rate FiO2 11/15/17 08:04 36.9 98 18 102/61 (75) 96 11/15/17 06:53 89 18 99/62 89 11/15/17 06:16 88 16 61/ 100 11/15/17 06:00 37.0 90 16 107/61 98 11/15/17 05:45 37.0 88 16 97/58 100 11/15/17 05:11 37.1 95 16 108/64 100 1.0 11/15/17 04:21 37.0 89 16 100/64 100 1.0 11/15/17 04:00 97 Room Air 11/15/17 03:52 37.0 101 18 112/73 100 11/15/17 03:50 37.0 101 22 112/73 (86) 100 Nasal Cannula 2.0 109 96/58 (71) 107 100/68 (79) 11/15/17 03:21 37.1 90 26 106/66 100 1.0 11/15/17 03:06 37.0 91 18 101/66 100 11/15/17 02:52 37.0 91 16 102/66 100 11/15/17 02:32 37.0 87 16 100/67 100 1.0 11/15/17 02:31 37.0 87 16 100/67 100 Physical Exam: 0General- oriented x 3, not in distress, speaks in sentences with no effort Head- atraumatic Eyes- PERRL, EOMI, anicteric ENT- oropharynx clear Neck- supple, no JVD, no adenopathy Lungs- clear breath sounds bilaterally, no rales/wheezes Heart- normal rate, regular rhythm; no murmurs Abdomen- normal bowel sounds, soft, nontender Extremities- no pretibial edema, no calf tenderness Neuro- alert, oriented x 3; no gross focal deficits Skin- warm & dry Laboratory Results: Last 24 Hours Test 11/14/17 20:20 11/14/17 20:26 11/14/17 22:46 11/15/17 09:18 Urine Color YELLOW Urine Appearance CLEAR Urine pH 5.0 Urine Specific [place] 1.016 Urine Protein NEG Urine Glucose (UA) NEG Urine Ketones NEG Urine Occult Blood NEG Urine Nitrite NEG Urine Bilirubin NEG Urine Urobilinogen NEG Urine Leukocyte Esterase NEG Urine Opiates Screen NEG Urine Methadone, Qualitative NEG Urine Barbiturates NEG Urine Phencyclidine (PCP) Level NEG Ur Amphetamine/Methamphetamine POS MDMA (Ecstasy) Screen NEG Urine Benzodiazepines Screen NEG Urine Cocaine Metabolite NEG Urine Marijuana (THC) NEG White Blood Count 8.02 K/uL 6.59 K/uL Red Blood Count 1.53 M/uL 2.41 M/uL Hemoglobin 4.8 g/dL 7.4 g/dL Hematocrit 14.0 % 21.4 % Mean Corpuscular Volume 91.5 fL 88.8 fL Mean Corpuscular Hemoglobin 31.4 pg 30.7 pg Mean Corpuscular Hemoglobin Concent 34.3 g/dl 34.6 g/dl Platelet Count 178 K/uL 142 K/uL Mean Platelet Volume 9.2 fL 9.0 fL Neutrophils (%) (Auto) 63.9 % 66.7 % Lymphocytes (%) (Auto) 27.3 % 24.7 % Monocytes (%) (Auto) 7.7 % 7.4 % Eosinophils (%) (Auto) 0.5 % 0.6 % Basophils (%) (Auto) 0.4 % 0.3 % Neutrophils # (Auto) 5.12 K/uL 4.39 K/uL Lymphocytes # (Auto) 2.19 K/uL 1.63 K/uL Monocytes # (Auto) 0.62 K/uL 0.49 K/uL Eosinophils # (Auto) 0.04 K/uL 0.04 K/uL Basophils # (Auto) 0.03 K/uL 0.02 K/uL RDW Standard Deviation 47.9 fL 47.5 fL RDW Coefficient of Variation 15.7 % 15.8 % Immature Granulocyte % (Auto) 0.2 % 0.3 % Immature Granulocyte # (Auto) 0.02 K/uL 0.02 K/uL Anisocytosis PRESENT Prothrombin Time 11.3 SECONDS Prothromb Time International Ratio 1.1 Activated Partial Thromboplast Time 21.5 SECONDS Partial Thromboplastin Ratio 0.8 Sodium Level 134 mmol/L Potassium Level 3.5 mmol/L Chloride Level 101 mmol/L Carbon Dioxide Level 31 mmol/L Anion Gap 2.0 mmol/L Blood Urea Nitrogen 22 mg/dl Creatinine 0.71 mg/dl Est Creatinine Clear Calc Drug Dose 170.2 ml/min Estimated GFR () > 150.0 Estimated GFR (Non- 131.3 BUN/Creatinine Ratio 31.0 Random Glucose 94 mg/dl Calcium Level 7.7 mg/dl Magnesium Level 1.9 mg/dl Total Bilirubin 0.3 mg/dl Direct Bilirubin < 0.1 mg/dl Aspartate Amino Transf (AST/SGOT) 11 U/L Alanine Aminotransferase (ALT/SGPT) 18 U/L Alkaline Phosphatase 30 U/L Troponin I < 0.015 ng/ml Total Protein 5.1 gm/dl Albumin 2.8 gm/dl Lipase 202 U/L Thyroid Stimulating Hormone (TSH) 1.260 uIu/ml Absolute Reticulocyte Count 0.13 10^6/uL Percent Reticulocyte Count 10.7 % Iron Level 79 mcg/dl Total Iron Binding Capacity 226 mcg/dl Transferrin 173 mg/dl Transferrin % Saturation 33 % Ferritin 40.2 ng/ml Ammonia 46.0 umol/L Vitamin B12 Level 246 pg/mL Folate 9.16 ng/mL Ethyl Alcohol mg/dL < 3.0 mg/dl Assessment & Plan SEVERE ANEMIA, LIKELY FROM GI BLEED - possible Upper GI Bleed- Ulcer, Gastritis uses Aleve, Excedrin regularly - s/p 3 units pRBC repeat H&H Fe level normal - continue Protonix drip for EGD today appreciate GI service consult SYNCOPE SECONDARY TO SYMPTOMATIC ANEMIA - repeat Ortho VS - CT head: no acute abnormality HISTORY OF CHRONIC SUBOXONE USE - per patient, he follows with a Suboxone Clinic in [place] reports that he did a Suboxone taper, and last dose was 3 days ago did not inform [facility]ox[facility] Clinic, encouraged to do so - denies symptoms of withdrawal at this time POSITIVE UDS FOR AMPHETAMINE/MET SCREEN - patient denies using illicit drugs - confirmatory test pending DVT prophylaxis - SCDs for now Disposition anticipate d/c home when medically stable needs to establish with a PCP needs to ff up with Suboxone Clinic in [place] Current Inpatient Medications: Current Inpatient Medications Medications (Trade) Dose Ordered Sig/Pat Route Start Time Stop Time Status Last Admin Dose Admin Acetaminophen (Tylenol Tab) 650 mg Q6H PRN PO 1/8/18 21:45 12/14/17 21:44 Pantoprazole Sodium 40 mg/ Dextrose 110 ml @ 20 mls/hr Q5H IV 11/14/17 23:30 12/14/17 23:29 11/15/17 05:31 20 MLS/HR Tramadol HCl (Ultram Tab) not relieved by tylenol @ Q6H PRN PO 11/14/17 22:30 12/14/17 22:29 Prochlorperazine Edisylate 5 mg/ Syringe 5 ml @ 5 mls/min Q6H PRN IV 11/14/17 22:30 12/14/17 22:29 Morphine Sulfate (MoRPHine SULFATE INJ) 4 mg Q6H PRN IV 11/14/17 22:30 11/28/17 22:29 Potassium Chloride/Sodium Chloride 1,000 ml @ 50 mls/hr Q20H IV 11/15/17 01:00 12/15/17 00:59 11/15/17 00:39 50 MLS/HR
--- NOTE | 2017-11-15 10:46 | Clinical Documentation Query ---
FELA Borden : CLINICAL DOCUMENTATION QUERY Patient is a 22 year old male admitted for severe anemia, possible upper GI bleed. For EGD today with gastroenterology. H&H 4.8 g/dl and 14.0% on admission. Has been transfused 3 units of PRBC's. Repeat H&H this a.m. 7.4 g/dl and 21.4%. As appropriate, please consider the acuity of the anemia as this impacts DRG assignment. Thank you. In your clinical opinion is this patient being managed for: ( ) Acute blood loss anemia ( ) Not Agree ( ) Other explanation of clinical findings (Please Explain) ( ) Unable to determine (Please Define) ( ) Need to Discuss The medical record reflects the following clinical findings, treatment, and risk factors. Clinical Indicators: As above Treatment: Serial hematology, EGD, GI consultation, PPI infusion Risk Factors: Excedrin use, coffee, energy drinks Please clarify and document your clinical opinion in the progress notes and discharge summary. Terms such as "probable", "suspected", "likely", "questionable", "possible", or "still to be ruled out" are acceptable. IF IN AGREEMENT, YOU MUST DOCUMENT ABOVE DIAGNOSTIC STATEMENT IN DAILY PROGRESS NOTES AND DISCHARGE SUMMARY. This document is not part of the patient's record. Thank You, Alex Baltazar RN [phone]
[2017-11-15 13:03] LABS: HEMATOCRIT 19.6 % (42-52); HEMOGLOBIN 6.8 g/dL (14.0-18.0)
[2017-11-15 18:38] LABS: HEMATOCRIT 22.2 % (42-52); HEMOGLOBIN 7.7 g/dL (14.0-18.0)
[2017-11-16] VITALS (10 sets, daily range): BP systolic 97–118; BP diastolic 59–71; PULSE 67–84; TEMP 36.2–37; O2SAT 98–100
[2017-11-16 00:10] LABS: HEMATOCRIT 24.7 % (42-52); HEMOGLOBIN 8.4 g/dL (14.0-18.0)
[2017-11-16] MEDS: PANTOprazole INJ 40 MG in DEXTROSE 5% 100ML 100 ML IV SCH ×3 (02:48→10:30)
[2017-11-16 06:09] LABS: BASO % 0.4 %; BASO ABS # 0.02 K/uL (0-0.2); EOS % 1.2 %; EOS ABS # 0.06 K/uL (0-0.5); HEMATOCRIT 24.8 % (42-52); HEMOGLOBIN 8.5 g/dL (14.0-18.0); IG# 0.01 K/uL (0.00-0.02); LYMPH % 26.1 %; LYMPH ABS # 1.27 K/uL (1.2-3.4); MEAN CELL VOLUME 89.9 fL (80-100); MEAN CORPUSCULAR HEMOGLOBIN 30.8 pg (25-34); MEAN CORPUSCULAR HGB CONC 34.3 g/dl (32-36); MEAN PLATELET VOLUME 9.5 fL (7.4-10.4); MONO % 7.4 %; MONO ABS # 0.36 K/uL (0.11-0.59); NEUT % 64.7 %; NEUT ABS # 3.14 K/uL (1.4-6.5); PLATELET COUNT 146 K/uL (130-400); RED CELL DISTRIBUTION WIDTH CV 16.1 % (11.5-14.5); WHITE BLOOD COUNT 4.86 K/uL (4.8-10.8)
[2017-11-16 08:20] LABS: BLOOD UREA NITROGEN 12 mg/dl (7-18); CALCIUM 7.6 mg/dl (8.5-10.1); CARBON DIOXIDE 28 mmol/L (21-32); GLUCOSE 98 mg/dl (70-99); POTASSIUM 4.2 mmol/L (3.5-5.1); SODIUM 143 mmol/L (136-145)
[2017-11-16] MEDS ORDERED: ACETAMINOPHEN IV 100 ML IV PRN (08:45)
[2017-11-16] MEDS ORDERED: MIDAZOLAM HCL 1 MG/ML 2ML VIAL ONE (09:34)
[2017-11-16] MEDS ORDERED: FENTANYL CITRATE INJ 50 MCG/1 ML 2 ML VIAL ONE (09:34)
--- NOTE | 2017-11-16 10:17 | Endo History and Physical ---
History & Physical Date of Service: Nov 16, 2017. Chief Complaint: Anemia Referring Physician: Dr. Patrick History of Present Illness Admitted with profound anemia, takes ASA and NSAID's for headache. Past Surgical History Hx Cardiac Surgery: No Hx Abdominal Surgery: Yes ( Appendectomy) Hx Cancer Surgery: No Hx Thoracic Surgery: No Hx Orthopedic: No Hx Urinary Tract Surgery: No Social History Smoking Status: Current Every Day Smoker Hx Substance Use: No Hx Alcohol Use: No Allergies Coded Allergies: No Known Allergies (Unverified , 11/14/17) Current Medications Reported Home Medications Medications Dose Route/Sig Max Daily Dose Days Date Category No Active Prescriptions or Reported Medications Rx Vital Signs Weight (Kilograms): 76.100 Height (Feet): 6 Height (Inches): 0.00 Date Time Temp Pulse Resp B/P (MAP) Pulse Ox O2 Delivery O2 Flow Rate FiO2 11/16/17 10:02 36.7 74 18 106/64 (78) 100 Room Air 0.0 11/16/17 07:53 36.7 79 18 118/69 (85) 99 11/16/17 04:00 Room Air 11/16/17 04:00 36.6 82 18 101/63 (76) 98 Room Air 11/16/17 00:11 36.9 82 18 97/59 (72) 99 Room Air 11/16/17 00:00 100 Room Air 11/15/17 23:08 36.7 81 16 100/62 99 11/15/17 22:30 79 16 104/64 100 11/15/17 22:00 73 18 100/63 99 11/15/17 21:28 36.9 80 108/66 100 11/15/17 21:13 36.7 86 114/70 100 11/15/17 20:00 100 Room Air 11/15/17 19:55 36.9 88 112/64 11/15/17 17:00 36.7 97 18 103/63 99 11/15/17 16:30 36.8 89 18 126/70 100 0.0 11/15/17 16:00 Room Air 11/15/17 16:00 36.8 90 16 126/73 98 11/15/17 15:35 36.8 92 16 105/63 100 11/15/17 15:15 86 108/68 11/15/17 15:00 89 18 129/79 98 11/15/17 15:00 114/65 11/15/17 14:45 36.9 91 18 118/63 98 0.0 11/15/17 14:30 36.9 89 18 117/67 100 0.0 11/15/17 14:15 36.8 98 18 113/67 98 0.0 11/15/17 14:02 36.9 87 18 110/66 99 0.0 11/15/17 12:14 36.7 84 18 109/61 (77) 96 11/15/17 12:00 Room Air Physical Exam General Appearance: WD/WN, no apparent distress Respiratory/Chest: Auscultation: breath sounds normal, no wheezing Cardiovascular: Heart Auscultation: RRR, no murmurs Assessment and Plan EGD today.
[2017-11-16] MEDS ORDERED: PHENYLEPHRINE 100MCG/ML 5ML SYR ONE (10:40)
[2017-11-16] MEDS ORDERED: PROPOFOL IV EMULSION 10 MG/ML 20 ML VIAL IV ONE (10:40)
[2017-11-16] MEDS ORDERED: LIDOCAINE HCL 2% 2 ML VIAL (20MG/ML) ONE (10:40)
[2017-11-16] MEDS ORDERED: ONDANSETRON INJ 2 MG/ML 2 ML VIAL ONE (10:40)
--- NOTE | 2017-11-16 10:43 | GI REPORT ---
Procedure Date: 11/16/2017 10:00 AM Procedure: Upper GI endoscopy Indications: Iron deficiency anemia Medicines: Monitored Anesthesia Care Complications: No immediate complications. Estimated blood loss: None. Estimated Blood Loss: Estimated blood loss: none. Procedure: Pre-Anesthesia Assessment: - Prior to the procedure, a History and Physical was performed, and patient medications, allergies and sensitivities were reviewed. The patient's tolerance of previous anesthesia was reviewed. - ASA Grade Assessment: II - A patient with mild systemic disease. After obtaining informed consent, the endoscope was passed under direct vision. Throughout the procedure, the patient's blood pressure, pulse, and oxygen saturations were monitored continuously. The Scope was introduced through the mouth, and advanced to the third part of the duodenum. Small bowel enteroscopy was deemed necessary. The upper GI endoscopy was accomplished with ease. The patient tolerated the procedure well. Findings: The upper third of the esophagus, middle third of the esophagus and lower third of the esophagus were normal. The Z-line was regular and was found 44 cm from the incisors. The entire examined stomach was normal. Biopsies were taken with a cold forceps for Helicobacter pylori testing. The examined duodenum was normal. Biopsies for histology were taken with a cold forceps for evaluation of celiac disease. Verification of patient identification for the specimens was done by the physician and nurse using the patient's name, date and medical record number. Impression: - Normal upper third of esophagus, middle third of esophagus and lower third of esophagus. - Z-line regular, 44 cm from the incisors. - Normal stomach. Biopsied. - Normal examined duodenum. Biopsied. Recommendation: - Perform a colonoscopy tomorrow. Ba Lopes M.D. Ba Lopes MD 11/16/2017 10:42:58 AM This report has been signed electronically. Note Initiated On: 11/16/2017 10:00 AM I attest to the content of the Intraoperative Record and orders documented therein, exceptions below
--- NOTE | 2017-11-16 11:50 | Anesthesiology Progress Note ---
Anesthesia Post Op Note Date & Time Nov 16, 2017 at 11:49 Vital Signs Pain Intensity: 0 Vital Signs Past 12 Hours Date Time Temp Pulse Resp B/P (MAP) Pulse Ox O2 Delivery O2 Flow Rate FiO2 11/16/17 11:30 80 20 104/68 (80) 99 Room Air 11/16/17 11:11 78 16 91/52 (65) 99 Room Air 11/16/17 11:00 80 16 92/40 (57) 98 Room Air 11/16/17 10:45 86 16 96/42 (60) 99 Room Air 11/16/17 10:36 36.7 74 18 100 0.0 11/16/17 10:02 36.7 74 18 106/64 (78) 100 Room Air 0.0 11/16/17 07:53 36.7 79 18 118/69 (85) 99 11/16/17 07:30 Room Air 11/16/17 04:00 Room Air 11/16/17 04:00 36.6 82 18 101/63 (76) 98 Room Air 11/16/17 00:11 36.9 82 18 97/59 (72) 99 Room Air 11/16/17 00:00 100 Room Air Notes Mental Status: alert / awake / arousable, participated in evaluation Pt Amnestic to Procedure: Yes Nausea / Vomiting: adequately controlled Pain: adequately controlled Airway Patency, RR, SpO2: stable & adequate BP & HR: stable & adequate Hydration State: stable & adequate Anesthetic Complications: no major complications apparent
--- NOTE | 2017-11-16 13:41 | Progress Note ---
Medicine Progress Note Date & Time of Visit: Nov 16, 2017 at 13:35. Subjective seen resting in bed, comfortable no BM today denies abdominal pain, nausea no chest pain, dyspnea, dizziness, palpitations requesting to take a shower eager for discharge no other symptoms Objective Last 8 Hrs Date Time Temp Pulse Resp B/P (MAP) Pulse Ox O2 Delivery O2 Flow Rate FiO2 11/16/17 12:00 Room Air 11/16/17 11:51 36.2 67 20 109/70 (83) 100 Room Air 11/16/17 11:30 80 20 104/68 (80) 99 Room Air 11/16/17 11:11 78 16 91/52 (65) 99 Room Air 11/16/17 11:00 80 16 92/40 (57) 98 Room Air 11/16/17 10:45 86 16 96/42 (60) 99 Room Air 11/16/17 10:36 36.7 74 18 100 0.0 11/16/17 10:02 36.7 74 18 106/64 (78) 100 Room Air 0.0 11/16/17 07:53 36.7 79 18 118/69 (85) 99 11/16/17 07:30 Room Air Physical Exam: General- oriented x 3, not in distress, speaks in sentences with no effort Eyes- EOMI, anicteric Neck- no JVD, no adenopathy Lungs- clear breath sounds BL, no rales, no wheezing Heart- normal rate, regular rhythm; no murmurs Abdomen- normal bowel sounds, soft, nontender Extremities- no pretibial edema, no calf tenderness Neuro- alert, oriented x 3; no gross focal deficits Skin- warm & dry Laboratory Results: Last 24 Hours Test 11/15/17 18:26 11/16/17 00:01 11/16/17 05:51 Hemoglobin 7.7 g/dL 8.4 g/dL 8.5 g/dL Hematocrit 22.2 % 24.7 % 24.8 % White Blood Count 4.86 K/uL Red Blood Count 2.76 M/uL Mean Corpuscular Volume 89.9 fL Mean Corpuscular Hemoglobin 30.8 pg Mean Corpuscular Hemoglobin Concent 34.3 g/dl Platelet Count 146 K/uL Mean Platelet Volume 9.5 fL Neutrophils (%) (Auto) 64.7 % Lymphocytes (%) (Auto) 26.1 % Monocytes (%) (Auto) 7.4 % Eosinophils (%) (Auto) 1.2 % Basophils (%) (Auto) 0.4 % Neutrophils # (Auto) 3.14 K/uL Lymphocytes # (Auto) 1.27 K/uL Monocytes # (Auto) 0.36 K/uL Eosinophils # (Auto) 0.06 K/uL Basophils # (Auto) 0.02 K/uL RDW Standard Deviation 49.0 fL RDW Coefficient of Variation 16.1 % Immature Granulocyte % (Auto) 0.2 % Immature Granulocyte # (Auto) 0.01 K/uL Polychromasia 1+ Sodium Level 143 mmol/L Potassium Level 4.2 mmol/L Chloride Level 109 mmol/L Carbon Dioxide Level 28 mmol/L Anion Gap 5.0 mmol/L Blood Urea Nitrogen 12 mg/dl Creatinine 0.70 mg/dl Est Creatinine Clear Calc Drug Dose 175.2 ml/min Estimated GFR () > 150.0 Estimated GFR (Non- 132.1 BUN/Creatinine Ratio 16.7 Random Glucose 98 mg/dl Calcium Level 7.6 mg/dl Assessment & Plan SEVERE ANEMIA, LIKELY FROM ACUTE BLOOD LOSS FROM GI BLEED - s/p EGD 11/16/17: unrevealing for Colonoscopy in AM - s/p 5 units pRBC Hg now at 8 no recurrence of melena/hematochezia Fe level normal SYNCOPE SECONDARY TO SYMPTOMATIC ANEMIA - repeat Ortho VS - CT head: no acute abnormality HISTORY OF CHRONIC SUBOXONE USE - per patient, he follows with a Suboxone Clinic in [place] reports that he did a Suboxone taper, and last dose was 3 days ago did not inform Suboxone Clinic, encouraged to do so - denies symptoms of withdrawal at this time POSITIVE UDS FOR AMPHETAMINE/MET SCREEN - patient denies using illicit drugs - confirmatory test pending DVT prophylaxis - SCDs for now Disposition anticipate d/c home when medically stable needs to establish with a PCP needs to ff up with Suboxone Clinic in [place] Current Inpatient Medications: Current Inpatient Medications Medications (Trade) Dose Ordered Sig/Pat Route Start Time Stop Time Status Last Admin Dose Admin Acetaminophen (Tylenol Tab) 650 mg Q6H PRN PO 11/14/17 21:45 12/14/17 21:44 Pantoprazole Sodium 40 mg/ Dextrose 110 ml @ 20 mls/hr Q5H IV 11/14/17 23:30 12/14/17 23:29 11/16/17 07:52 20 MLS/HR Tramadol HCl (Ultram Tab) not relieved by tylenol @ Q6H PRN PO 11/14/17 22:30 12/14/17 22:29 11/16/17 11:50 50 MG Prochlorperazine Edisylate 5 mg/ Syringe 5 ml @ 5 mls/min Q6H PRN IV 11/14/17 22:30 12/14/17 22:29 Morphine Sulfate (MoRPHine SULFATE INJ) 4 mg Q6H PRN IV 11/14/17 22:30 11/28/17 22:29 Potassium Chloride/Sodium Chloride 1,000 ml @ 50 mls/hr Q20H IV 11/15/17 01:00 12/15/17 00:59 11/15/17 19:31 50 MLS/HR Acetaminophen 100 ml @ 400 mls/hr Q8H PRN IV 11/16/17 08:45 12/16/17 08:44 11/16/17 08:56 400 MLS/HR Polyethylene (Miralax Powder Packet) 119 gm 1700 ONCE PO 11/16/17 17:00 11/16/17 17:01 Polyethylene (Miralax Powder Packet) 119 gm 2100 ONCE PO 11/16/17 21:00 11/16/17 21:01 Bisacodyl (Dulcolax Tab) 20 mg 1700 ONCE PO 11/16/17 17:00 11/16/17 17:01
[2017-11-16] MEDS ORDERED: POLYETHYLENE (MIRALAX) 17 GM PACK PO ONE ×2 (17:00→21:00)
[2017-11-16] MEDS ORDERED: BISACODYL 5 MG TABEC PO ONE (17:00)
[2017-11-16] MEDS: NSS + 20MEQ KCL 1000ML 1,000 ML IV SCH (17:08)
[2017-11-17] VITALS (10 sets, daily range): BP systolic 103–118; BP diastolic 65–74; PULSE 70–96; TEMP 36.4–36.8; O2SAT 87–100
[2017-11-17] MEDS ORDERED: NURSING VERBAL MED ORDER ONE ×2 (06:00→10:30)
[2017-11-17 06:03] LABS: BASO % 0.4 %; BASO ABS # 0.02 K/uL (0-0.2); EOS % 1.2 %; EOS ABS # 0.06 K/uL (0-0.5); HEMATOCRIT 24.6 % (42-52); HEMOGLOBIN 8.3 g/dL (14.0-18.0); IG# 0.01 K/uL (0.00-0.02); LYMPH % 27.8 %; LYMPH ABS # 1.35 K/uL (1.2-3.4); MEAN CELL VOLUME 91.8 fL (80-100); MEAN CORPUSCULAR HGB CONC 33.7 g/dl (32-36); MONO % 8.2 %; NEUT % 62.2 %; NEUT ABS # 3.02 K/uL (1.4-6.5); PLATELET COUNT 151 K/uL (130-400); RED CELL DISTRIBUTION WIDTH CV 16.6 % (11.5-14.5); RED CELL DISTRIBUTION WIDTH SD 50.2 fL (36.4-46.3); WHITE BLOOD COUNT 4.86 K/uL (4.8-10.8)
[2017-11-17] MEDS ORDERED: ACETAMINOPHEN IV 1000MG/100ML IV ONE (06:15)
[2017-11-17] MEDS ORDERED: BISACODYL 5 MG TABEC PO ONE (09:00)
[2017-11-17] MEDS ORDERED: POLYETHYLENE (MIRALAX) 17 GM PACK PO ONE (09:00)
[2017-11-17] MEDS ORDERED: HYDROmorphone INJ 1 MG/ML SYR IV ONE (10:45)
--- NOTE | 2017-11-17 11:31 | Endo History and Physical ---
History & Physical Date of Service: Nov 17, 2017. Chief Complaint: Anemia, melena Referring Physician: Dr. Walker History of Present Illness Admitted with profound anemia, takes ASA and NSAID's for headache. Past Surgical History Hx Cardiac Surgery: No Hx Abdominal Surgery: Yes ( Appendectomy) Hx Cancer Surgery: No Hx Thoracic Surgery: No Hx Orthopedic: No Hx Urinary Tract Surgery: No Social History Smoking Status: Current Every Day Smoker Hx Substance Use: No Hx Alcohol Use: No Allergies Coded Allergies: No Known Allergies (Unverified , 11/14/17) Current Medications Reported Home Medications Medications Dose Route/Sig Max Daily Dose Days Date Category No Active Prescriptions or Reported Medications Rx Vital Signs Weight (Kilograms): 77.800 Height (Feet): 6 Height (Inches): 0.00 Date Time Temp Pulse Resp B/P (MAP) Pulse Ox O2 Delivery O2 Flow Rate FiO2 11/17/17 11:16 36.7 53 18 117/79 (92) 100 Nasal Cannula 2 11/17/17 11:08 92 Nasal Cannula 2.0 11/17/17 11:08 36.8 95 18 118/74 (89) 87 Room Air 11/17/17 08:00 Room Air 11/17/17 07:53 36.4 70 18 103/65 (78) 98 11/17/17 04:15 36.4 96 16 110/68 (82) 90 Room Air 11/17/17 04:00 Room Air 11/17/17 00:06 36.7 72 16 107/72 (84) 100 Room Air 11/17/17 00:00 Room Air 11/16/17 20:18 37.0 70 18 118/71 (87) 100 Room Air 11/16/17 20:00 100 Room Air 11/16/17 16:00 100 Room Air 11/16/17 15:50 36.6 84 18 108/70 (83) 100 Room Air 11/16/17 12:00 Room Air 11/16/17 11:51 36.2 67 20 109/70 (83) 100 Room Air Physical Exam General Appearance: WD/WN, no apparent distress Respiratory/Chest: Auscultation: breath sounds normal, no wheezing Abdomen: Inspection & Palpation: soft, no tenderness, guarding & rebound Assessment and Plan For colonoscopy today.
--- NOTE | 2017-11-17 12:06 | GI REPORT ---
Procedure Date: 11/17/2017 11:41 AM Procedure: Colonoscopy Indications: Melena, Iron deficiency anemia Medicines: Monitored Anesthesia Care Complications: No immediate complications. Estimated blood loss: None. Estimated Blood Loss: Estimated blood loss: none. Procedure: Pre-Anesthesia Assessment: - Prior to the procedure, a History and Physical was performed, and patient medications, allergies and sensitivities were reviewed. The patient's tolerance of previous anesthesia was reviewed. - ASA Grade Assessment: II - A patient with mild systemic disease. After I obtained informed consent, the scope was passed under direct vision. Throughout the procedure, the patient's blood pressure, pulse, and oxygen saturations were monitored continuously. The Scope was introduced through the anus with the intention of advancing to the cecum. The scope was advanced to the sigmoid colon before the procedure was aborted. Medications were given. The colonoscopy was aborted due to inadequate bowel prep. The patient tolerated the procedure well. Findings: A large amount of liquid and solid stool was found from rectum to sigmoid colon, precluding visualization. The procedure was aborted. Impression: - The procedure was aborted due to inadequate bowel prep. - Stool from rectum to sigmoid colon. - No specimens collected. Recommendation: - Repeat colonoscopy tomorrow because the bowel preparation was poor. Ba Lopes M.D. Ba Lopes MD 11/17/2017 12:05:46 PM This report has been signed electronically. Note Initiated On: 11/17/2017 11:41 AM I attest to the content of the Intraoperative Record and orders documented therein, exceptions below
--- NOTE | 2017-11-17 12:35 | Anesthesiology Progress Note ---
Anesthesia Post Op Note Date & Time Nov 17, 2017 at 12:35 Vital Signs Pain Intensity: 0 Vital Signs Past 12 Hours Date Time Temp Pulse Resp B/P (MAP) Pulse Ox O2 Delivery O2 Flow Rate FiO2 11/17/17 12:25 69 20 115/69 (84) 100 Room Air 11/17/17 12:17 70 18 94/45 (61) 100 Room Air 11/17/17 12:02 74 16 95/43 (60) 99 Room Air 11/17/17 11:16 36.7 53 18 117/79 (92) 100 Nasal Cannula 2 11/17/17 11:08 92 Nasal Cannula 2.0 11/17/17 11:08 36.8 95 18 118/74 (89) 87 Room Air 11/17/17 08:00 Room Air 11/17/17 07:53 36.4 70 18 103/65 (78) 98 11/17/17 04:15 36.4 96 16 110/68 (82) 90 Room Air 11/17/17 04:00 Room Air Notes Mental Status: alert / awake / arousable, participated in evaluation Pt Amnestic to Procedure: Yes Nausea / Vomiting: adequately controlled Pain: adequately controlled Airway Patency, RR, SpO2: stable & adequate BP & HR: stable & adequate Hydration State: stable & adequate Anesthetic Complications: no major complications apparent
[2017-11-17] MEDS: NSS + 20MEQ KCL 1000ML 1,000 ML IV SCH (12:41)
[2017-11-17] MEDS ORDERED: PROPOFOL IV EMULSION 10 MG/ML 20 ML VIAL IV ONE (12:49)
[2017-11-17] MEDS ORDERED: LIDOCAINE HCL 2% 2 ML VIAL (20MG/ML) ONE (12:49)
--- NOTE | 2017-11-17 18:22 | Progress Note ---
Medicine Progress Note Date & Time of Visit: Nov 17, 2017 at 18:11. Subjective patient seen resting in bed, sitting up, just had dinner s/p Colonoscopy today denies melena/hematochezia, abdominal pain, nausea no dizziness, weakness, palpitations, chest pain, dyspnea had headache this morning- now resolved no other symptoms states he is ready and would like to be discharged today Objective Last 8 Hrs Date Time Temp Pulse Resp B/P (MAP) Pulse Ox O2 Delivery O2 Flow Rate FiO2 11/17/17 16:00 100 Room Air 11/17/17 15:40 36.8 80 18 115/67 (83) 100 11/17/17 12:46 36.4 75 18 105/65 (78) 100 Room Air 11/17/17 12:30 Room Air 11/17/17 12:25 69 20 115/69 (84) 100 Room Air 11/17/17 12:17 70 18 94/45 (61) 100 Room Air 11/17/17 12:02 74 16 95/43 (60) 99 Room Air 11/17/17 11:16 36.7 53 18 117/79 (92) 100 Nasal Cannula 2 11/17/17 11:08 92 Nasal Cannula 2.0 11/17/17 11:08 36.8 95 18 118/74 (89) 87 Room Air Physical Exam: General- oriented x 3, not in distress, speaks in sentences with no effort Eyes- anicteric Neck- no JVD Lungs- clear BS bilaterally, no rales/wheezes Heart- normal rate, regular rhythm; no murmurs Abdomen- normal bowel sounds, soft, nontender Extremities- no pretibial edema, no calf tenderness Neuro- alert, oriented x 3; no gross focal deficits Skin- warm & dry Laboratory Results: Last 24 Hours Test 11/17/17 05:52 White Blood Count 4.86 K/uL Red Blood Count 2.68 M/uL Hemoglobin 8.3 g/dL Hematocrit 24.6 % Mean Corpuscular Volume 91.8 fL Mean Corpuscular Hemoglobin 31.0 pg Mean Corpuscular Hemoglobin Concent 33.7 g/dl Platelet Count 151 K/uL Mean Platelet Volume 9.0 fL Neutrophils (%) (Auto) 62.2 % Lymphocytes (%) (Auto) 27.8 % Monocytes (%) (Auto) 8.2 % Eosinophils (%) (Auto) 1.2 % Basophils (%) (Auto) 0.4 % Neutrophils # (Auto) 3.02 K/uL Lymphocytes # (Auto) 1.35 K/uL Monocytes # (Auto) 0.40 K/uL Eosinophils # (Auto) 0.06 K/uL Basophils # (Auto) 0.02 K/uL RDW Standard Deviation 50.2 fL RDW Coefficient of Variation 16.6 % Immature Granulocyte % (Auto) 0.2 % Immature Granulocyte # (Auto) 0.01 K/uL Polychromasia 1+ Assessment & Plan SEVERE ANEMIA, LIKELY FROM ACUTE BLOOD LOSS FROM GI BLEED - GI consulted, Dr. Lopes/MANDO Puente - s/p EGD 11/16/17: unrevealing s/p Colonoscopy: poor preparation, to be repeated as outpatient per GI - s/p 5 units pRBC Hg now at 8, stable so far no recurrence of melena/hematochezia - Fe level normal: 79 - discharge plan: GI to call patient to arrange for outpatient Colonoscopy Protonix 40mg po daily patient advised no NSAIDs, alcohol, smoking given precautions and advised to return to ER immediately if with recurrence of GI bleed symptoms SYNCOPE SECONDARY TO SYMPTOMATIC ANEMIA - denies dizziness - CT head: no acute abnormality HISTORY OF CHRONIC SUBOXONE USE - per patient, he follows with a Suboxone Clinic in [place] reports that he did a Suboxone taper, and last dose was 3 days prior to admission did not inform Suboxone Clinic, encouraged to do so - no signs/ symptoms of withdrawal noted on admission POSITIVE UDS FOR AMPHETAMINE/MET SCREEN - patient denies using illicit drugs - counselling done Disposition d/c home needs to establish with a PCP and ff up in 3-5 days ff up with GI in 1 week needs to ff up with Suboxone Clinic in [place] Current Inpatient Medications: Current Inpatient Medications Medications (Trade) Dose Ordered Sig/Pat Route Start Time Stop Time Status Last Admin Dose Admin Acetaminophen (Tylenol Tab) 650 mg Q6H PRN PO 11/14/17 21:45 12/14/17 21:44 Tramadol HCl (Ultram Tab) not relieved by tylenol @ Q6H PRN PO 11/14/17 22:30 12/14/17 22:29 11/16/17 11:50 50 MG Prochlorperazine Edisylate 5 mg/ Syringe 5 ml @ 5 mls/min Q6H PRN IV 11/14/17 22:30 12/14/17 22:29 Morphine Sulfate (MoRPHine SULFATE INJ) 4 mg Q6H PRN IV 11/14/17 22:30 11/28/17 22:29 11/17/17 08:36 4 MG Potassium Chloride/Sodium Chloride 1,000 ml @ 50 mls/hr Q20H IV 11/15/17 01:00 12/15/17 00:59 11/17/17 12:41 50 MLS/HR Acetaminophen 100 ml @ 400 mls/hr Q8H PRN IV 11/16/17 08:45 12/16/17 08:44 11/16/17 08:56 400 MLS/HR
[2017-11-17] MEDS ORDERED: PANT1TAB3 PO (18:24)
--- NOTE | 2017-11-17 18:29 | Discharge Instructions ---
Discharge Instructions Date of Service Nov 17, 2017. Admission Reason for Admission: Gi Bleed Discharge Discharge Diagnosis / Problem: GASTROINTESTINAL BLEED Discharge Goals Goal(s): Diagnostic testing, Therapeutic intervention Activity Recommendations Activity Limitations: as noted below (NO HEAVY EXERTION UNTIL RE-EVALUATED BY PRIMARY CARE PHYSICIAN) Lifting Limitations: until after follow-up appointment Exercise/Sports Limitations: until after follow-up appointment . Instructions / Follow-Up Instructions / Follow-Up PLEASE REFER TO YOUR NEW MEDICATION LIST AND FOLLOW INSTRUCTIONS CAREFULLY. CALL YOUR PRIMARY CARE PHYSICIAN OR RETURN TO ER IMMEDIATELY IF WITH RECURRENCE OF SYMPTOMS, BLOOD IN THE STOOLS, DIZZINESS, WEAKNESS, SHORTNESS OF BREATH. FOLLOW UP WITH PRIMARY CARE PHYSICIAN 3-5 DAYS. FOLLOW UP WITH [facility] SCHEDULED. FOLLOW UP WITH [facility] SCHEDULED. ([facility] WILL CALL YOU FOR THE ABOVE APPOINTMENTS). Current Hospital Diet Patient's current hospital diet: Low Fiber Diet Discharge Diet Recommended Diet: Low Fiber Diet Procedures Procedures Performed: UPPER GI ENDOSCOPY, COLONOSCOPY Pending Studies Studies pending at discharge: yes List of pending studies: REPEAT BLOODWORK C/O PRIMARY CARE PHYSICIAN Medical Emergencies . Who to Call and When: Medical Emergencies: If at any time you feel your situation is an emergency, please call 911 immediately. . Non-Emergent Contact Non-Emergency issues call your: Primary Care Provider, Plant Science Professor Call Non-Emergent contact if: you have a fever, your pain is not controlled, your pain is worsening, you have any medication questions . . "Provider Documentation" section prepared by Jonn Correia. . VTE Core Measure Inpt VTE Proph given/why not?: SCD's
[2017-11-22] MEDS ORDERED: PANT40TA PO (10:48)
[2017-11-22] MEDS ORDERED: SUBOXONE PO (10:48)
== END 2017-11-17 19:17 | disposition home or self-care (01) | DRG 378 ==
LOC: C.EDB 19:38 → C.2T 22:08 → ENRESERV 22:36 → C.MED 11-16 09:28
PROVIDERS: ADMIT Internal Medicine; ATTEND Internal Medicine
PROC: 0DB98ZX Excision of Duodenum, Via Natural or Artificial Opening Endoscopic, Diagnostic (ICD-10-PCS; principal; 2017-11-16 09:44)
PROC: 0DB68ZX Excision of Stomach, Via Natural or Artificial Opening Endoscopic, Diagnostic (ICD-10-PCS; principal; 2017-11-16 09:44)
PROC: 0DJD8ZZ Inspection of Lower Intestinal Tract, Via Natural or Artificial Opening Endoscopic (ICD-10-PCS; 2017-11-17)
DX: K92.1 Melena (principal); D62 Acute posthemorrhagic anemia; F17.299 Nicotine dependence, other tobacco product, with unspecified nicotine-induced disorders; Z83.79 Family history of other diseases of the digestive system; K21.9 Gastro-esophageal reflux disease without esophagitis; R51 Headache; Z79.1 Long term (current) use of non-steroidal anti-inflammatories (NSAID)

== ENCOUNTER → 2017-11-25 | Day surgery (SDC) | payer BC ==
[2017-11-22 10:49] VITALS: Ht 182.9 cm
[~2017-11-25] VITALS: Ht 182.9 cm
[~2017-11-25] MED LIST: LIDOCAINE HCL 2% 2 ML VIAL (20MG/ML) ONE; MIDAZOLAM HCL 1 MG/ML 2ML VIAL ONE; PANT40TA PO; PROPOFOL IV EMULSION 10 MG/ML 20 ML VIAL IV ONE; SODIUM CHLORIDE 0.9% 500ML 500 ML IV ONE; SUBOXONE PO
--- NOTE | 2017-11-25 10:49 | Endo History and Physical ---
History & Physical Date of Service: Nov 25, 2017. Chief Complaint: iron def Referring Physician: History of Present Illness iron def anemia Past Surgical History Hx Cardiac Surgery: No Hx Internal Defibrillator: No Hx Pacemaker: No Hx Abdominal Surgery: Yes (APPY) Hx of Implantable Prosthesis: No Hx Post-Op Nausea and Vomiting: No Hx Cancer Surgery: No Hx Thoracic Surgery: No Hx Orthopedic: No Hx Urinary Tract Surgery: No Family History None Social History Smoking Status: Current Every Day Smoker Hx Substance Use: Yes (SEE MED REC) Hx Alcohol Use: Yes (OCCASIONALLY) Allergies Coded Allergies: No Known Allergies (Unverified , 11/25/17) Current Medications Reported Home Medications Medications Dose Route/Sig Max Daily Dose Days Date Category Protonix (Pantoprazole Sodium) 40 Mg Tab 40 Mg PO QAM 11/22/17 Reported [Suboxone] 1 Dose PO QAM 11/22/17 Reported Vital Signs Weight (Kilograms): 0 Height (Feet): 6 Height (Inches): 0 Physical Exam General Appearance: no apparent distress Respiratory/Chest: Auscultation: breath sounds normal Cardiovascular: Heart Auscultation: RRR Abdomen: Inspection & Palpation: soft Assessment and Plan Iron def anemia - Cscopy
--- NOTE | 2017-11-25 12:08 | GI REPORT ---
Procedure Date: 11/25/2017 10:54 AM Procedure: Colonoscopy Indications: Iron deficiency anemia Medicines: See the Anesthesia note for documentation of the administered medications Complications: No immediate complications. Estimated Blood Loss: Estimated blood loss: none. Procedure: Pre-Anesthesia Assessment: - ASA Grade Assessment: II - A patient with mild systemic disease. After I obtained informed consent, the scope was passed under direct vision. Throughout the procedure, the patient's blood pressure, pulse, and oxygen saturations were monitored continuously. The scope was introduced through the anus and advanced to the terminal ileum. The colonoscopy was performed without difficulty. The patient tolerated the procedure well. The quality of the bowel preparation was good. Findings: Hemorrhoids were found on perianal exam. The colon (entire examined portion) appeared normal. The terminal ileum appeared normal. Impression: - Hemorrhoids found on perianal exam. - The entire examined colon is normal. - The examined portion of the ileum was normal. - No specimens collected. Recommendation: - Consider outpt capsule endoscopy. - Discharge patient to home. Melissa Borges M.D. Melissa Borges MD 11/25/2017 12:07:44 PM This report has been signed electronically. Note Initiated On: 11/25/2017 10:54 AM I attest to the content of the Intraoperative Record and orders documented therein, exceptions below
--- NOTE | 2017-11-25 12:23 | Anesthesiology Progress Note ---
Anesthesia Post Op Note Date & Time Nov 25, 2017 at 12:22 Vital Signs Vital Signs Past 12 Hours Date Time Temp Pulse Resp B/P (MAP) Pulse Ox O2 Delivery O2 Flow Rate FiO2 11/25/17 12:08 72 18 95/58 (70) 99 Room Air 11/25/17 11:53 82 18 94/43 (60) 98 Room Air 11/25/17 10:58 36.7 75 16 114/66 (82) 96 Room Air Notes Mental Status: alert / awake / arousable, participated in evaluation Pt Amnestic to Procedure: Yes Nausea / Vomiting: adequately controlled Pain: adequately controlled Airway Patency, RR, SpO2: stable & adequate BP & HR: stable & adequate Hydration State: stable & adequate Anesthetic Complications: no major complications apparent
--- NOTE | 2017-11-25 12:35 | Discharge Instructions ---
Endoscopy Patient Instructions Date / Procedure(s) Performed Nov 25, 2017. Colonoscopy Allergy Information Coded Allergies: No Known Allergies (Unverified , 11/25/17) Discharge Date / Findings Nov 25, 2017. Unremarkable exam Provider Instructions Activity Restrictions - No exercising or heavy lifting for 24 hours. - Do not drink alcohol the day of the procedure. - Do not drive a car or operate machinery until the day after the procedure. - Do not make any important decisions or sign important papers in 24 hours after the procedure. Following Day: - Return to full activity which may include returning to work/school. Diet Start your diet with liquids and light foods (jello, soup, juice, toast). Then eat your usual diet if not nauseated. Treatment For Common After Affects For mild abdominal pain, bloating, or excessive gas: - Rest - Eat lightly - Lie on right side Follow-Up Information Follow-up with Dr Hewitt as scheduled F/u in GI clinic for capsule endoscopy Anesthesia Information What You Should Know You have had a procedure that required some medicine to reduce anxiety and discomfort. This treatment is called moderate sedation. After receiving the treatment, you may be sleepy, but you will be able to breathe on your own. The effects of the treatment may last for several hours. Follow these instructions along with Activity/Diet recommendations noted above: * Do NOT do anything where dizziness or clumsiness would be dangerous. * Rest quietly at home today, then you can be up and about tomorrow. * Have a responsible person stay with you the rest of today. * You may have had an I.V. today. If so, you may take the dressing off later today. Recommendations Call your doctor if: * Trouble breathing * Continuous vomiting for more than 24 hours * Temperature above 101 degrees * Severe abdominal pain or bloating * Pain not relieved by pain medicine ordered * There is increased drainage or redness from any incision * A large amount of rectal bleeding greater than 2-3 tablespoons. (If you had a polyp/s removed or have hemorrhoids, a small amount of blood - from the rectum is to be expected.) * You have any unanswered questions or concerns. IN THE EVENT OF A SERIOUS EMERGENCY, GO TO THE NEAREST EMERGENCY ROOM Your discharge instructions were prepared by provider Melissa Rosario. Patient Instructions Signature Page Jon Juarez Patient (or Guardian) Signature/Date: I have read and understand the instructions given to me by my caregivers. Caregiver/RN/Doctor Signature/Date: The above-named patient and/or guardian has received patient instructions on this date. + Original Patient Signature Page (only) stays with chart. Please make copy for patient.
[2017-11-25 12:37] VITALS: BP 112/63; PULSE 70; O2SAT 100
== END | disposition home or self-care (01) ==
LOC: C.GI 10:15
PROVIDERS: ATTEND Internal Medicine Gastroenterology
DX: D50.9 Iron deficiency anemia, unspecified (principal); F17.200 Nicotine dependence, unspecified, uncomplicated; K64.9 Unspecified hemorrhoids